=== PATIENT | male | born 1990 | race African-American/Black ===

== ENCOUNTER 2017-08-31 15:49 | Emergency (ER) | payer OTHER ==
[~2017-08-31] VITALS: Ht 180.3 cm; Wt 68.0 kg
[2017-08-31] MEDS ORDERED: COUGH & COLD S237 ML PO (16:59)
[2017-08-31] MEDS ORDERED: FLONASE 0.05%50 MCG NASAL (16:59)
[2017-08-31 17:10] VITALS: BP 119/78
== END 2017-08-31 17:11 | disposition home or self-care (01) ==
LOC: ER 15:49
DX: J06.9 Acute upper respiratory infection, unspecified (principal); J02.9 Acute pharyngitis, unspecified; F17.210 Nicotine dependence, cigarettes, uncomplicated